=== PATIENT | female | born 1945 | race Caucasian/White ===

== ENCOUNTER 2023-07-01 14:18 | Outpatient (CLI) | payer OTHER, SELFPAY | END 2023-07-01 14:19 | disposition home or self-care (01) | PROVIDERS: PCP Family Medicine; Visit Provider Family Medicine | DX: E55.9 Vitamin D deficiency, unspecified (principal); I10 Essential (primary) hypertension; E78.5 Hyperlipidemia, unspecified; R53.83 Other fatigue; F41.1 Generalized anxiety disorder | CPT/HCPCS: 80053; 80061; 82306; 84443 ==

== ENCOUNTER 2023-07-14 11:25 | Outpatient (CLI) | payer OTHER, SELFPAY | END 2023-07-14 11:26 | disposition home or self-care (01) | PROVIDERS: PCP Family Medicine; Referring Provider Family Medicine; Visit Provider Family Medicine | DX: I10 Essential (primary) hypertension (principal) | CPT/HCPCS: 80048 ==

== ENCOUNTER 2023-12-13 10:01 | Outpatient (CLI) | payer MEDICARE, SELFPAY | END 2023-12-13 10:02 | disposition home or self-care (01) | LOC: NFLDREF 12-15 07:40 | PROVIDERS: PCP Family Medicine; Referring Provider Family Medicine; Visit Provider Family Medicine | DX: E78.5 Hyperlipidemia, unspecified (principal); I10 Essential (primary) hypertension | CPT/HCPCS: 80053; 80061 ==

== ENCOUNTER 2024-03-15 09:50 | Outpatient (CLI) | payer OTHER, SELFPAY | END 2024-03-15 09:51 | disposition home or self-care (01) | LOC: NFLDREF 03-17 07:09 | PROVIDERS: PCP Family Medicine; Referring Provider Family Medicine; Visit Provider Family Medicine | DX: M81.0 Age-related osteoporosis without current pathological fracture (principal) | CPT/HCPCS: 80061; 82306 ==

== ENCOUNTER 2024-04-26 09:13 | Outpatient (CLI) | payer OTHER, SELFPAY | END 2024-04-26 09:14 | disposition home or self-care (01) | LOC: NFLDREF 04-28 16:08 | PROVIDERS: PCP Family Medicine; Referring Provider Family Medicine; Visit Provider Family Medicine | DX: I10 Essential (primary) hypertension (principal) | CPT/HCPCS: 80048 ==

== ENCOUNTER 2024-06-28 09:45 | Outpatient (CLI) | payer MEDICARE, SELFPAY | END 2024-06-28 09:46 | disposition home or self-care (01) | LOC: NFLDREF 06-29 08:25 | PROVIDERS: PCP Family Medicine; Referring Provider Family Medicine; Visit Provider Family Medicine | DX: E78.5 Hyperlipidemia, unspecified (principal); I10 Essential (primary) hypertension; E55.9 Vitamin D deficiency, unspecified; M19.90 Unspecified osteoarthritis, unspecified site | CPT/HCPCS: 80053; 80061; 82306 ==

== ENCOUNTER 2024-12-27 10:46 | Outpatient (CLI) | payer MEDICARE, SELFPAY ==
--- NOTE | 2024-12-27 11:00 | CRLHL7_ITS ---
For Patients: As a result of the Century Cures Act, medical imaging exams and procedure reports are released immediately into your electronic medical record. You may view this report before your referring provider. If you have questions, please contact your health care provider. Indication: Chronic sinusitis. Technique: Noncontrast CT of the paranasal sinuses with multiplanar reconstruction utilizing bone and soft tissue algorithms. Comparison: Correlated with CT head dated 11/11/2018. Findings: Frontal sinuses: Clear. Maxillary sinuses: Clear with patent ostiomeatal complexes and accessory ostia. Ethmoid sinuses: Mild diffuse mucosal thickening. Sphenoid sinuses: Clear with patent ostia. Right sphenoethmoidal air cell. Nasal cavity: Mild rightward deviation of the nasal septum with no large septal spur. Other: Evidence of prior cataract surgery. Multiple postinflammatory tonsillar phleboliths. Impression: Mild diffuse mucosal thickening throughout the ethmoid sinuses. Please note that all CT scans at this facility use dose modulation, iterative reconstruction, and/or weight-based dosing when appropriate to reduce radiation dose to as low as reasonably achievable. Dictated by Rene Hodge MD @ 12/27/2024 11:22:09 PM (Electronically Signed)
--- NOTE | 2024-12-27 11:30 | CRLHL7_ITS ---
For Patients: As a result of the Century Cures Act, medical imaging exams and procedure reports are released immediately into your electronic medical record. You may view this report before your referring provider. If you have questions, please contact your health care provider. INDICATION: Dysphonia COMPARISON: none TECHNIQUE: León scale and color Doppler images were acquired of the thyroid gland. FINDINGS: Solid hypoechoic nodule left thyroid lobe measures 1.2 x 0.7 x 1.1 cm, TR 4. Isthmus measures 2 millimeters. The right lobe measures 3.5 x 1.2 x 1.5 cm and the left lobe measures 3.8 x 1.3 x 1.7 cm in size. The color Doppler images demonstrate normal vascularity. There is no evidence of cervical lymphadenopathy or parathyroid mass. IMPRESSION: 1.2 cm TR 4 nodule left thyroid lobe. One year follow-up recommended. Dictated by Sonny Peña MD @ 12/27/2024 2:29:31 PM (Electronically Signed)
== END 2024-12-27 10:47 | disposition home or self-care (01) ==
LOC: CT 10:47
PROVIDERS: PCP Family Medicine; Visit Provider Otolaryngology
DX: J32.9 Chronic sinusitis, unspecified (principal); J32.2 Chronic ethmoidal sinusitis; R49.0 Dysphonia
CPT/HCPCS: 70486; 76536

== ENCOUNTER 2025-06-26 11:05 | Outpatient (CLI) | payer MEDICARE, SELFPAY | END 2025-06-26 11:06 | disposition home or self-care (01) | LOC: NFLDREF 06-28 10:34 | PROVIDERS: PCP Family Medicine; Referring Provider Family Medicine; Visit Provider Family Medicine | DX: E78.5 Hyperlipidemia, unspecified (principal); I10 Essential (primary) hypertension; E55.9 Vitamin D deficiency, unspecified; E04.1 Nontoxic single thyroid nodule | CPT/HCPCS: 80053; 80061; 82306 ==